=== PATIENT | male | born 1955 | race Caucasian/White ===

== ENCOUNTER 2023-06-22 14:49 | Outpatient (OUT) | payer MEDICARE, SELFPAY | END 2023-06-22 14:50 | disposition home or self-care (01) | LOC: PST 14:50 | PROVIDERS: PCP Family Medicine; Visit Provider Surgery | DX: Z01.818 Encounter for other preprocedural examination (principal) ==

== ENCOUNTER 2023-06-28 06:18 | Day surgery (SDC) | payer MEDICARE, SELFPAY ==
[2023-06-28 06:25] VITALS: BP 142/70; PULSE 82; TEMP 36.1; O2SAT 98; BMI 30.3
[2023-06-28 06:38] LABS: Glucometer 119 mg/dL (74-106)
[2023-06-28] MEDS: LACTATED RINGER'S SOLUTION 1,000 ML 50 ML IV (07:07)
[2023-06-28 07:52] VITALS: BP 104/49; PULSE 67; TEMP 35.9; O2SAT 95
--- NOTE | 2023-06-28 07:57 | PM.GSPRC ---
Date of procedure: 06/28/23 Indications for Procedure: screening colonoscopy Pre-op diagnosis: screening colonoscopy Post-op diagnosis: other (sigmoid diverticulitis, 40cm/sigmoid subcentimeter polyp removed with hot snare ) Procedure: Previous colonoscopy: 2016 procedure: screening colonoscopy PROCEDURE: The patient was given IV conscious sedation.? The patient's SPO2 remained above 90% throughout the procedure. The colonoscope was inserted per rectum and advanced under direct vision to the cecum without difficulty.? The prep was good.? Findings: Terminal ileum os: normal Cecum/Ascending colon: normal Transverse colon: normal Descending/Sigmoid colon: mild diverticulitis, sub centimeter polyp at 40cm removed via hot snare polypectomy technique Rectum/Anus: examined in normal and retroflexed positions and was normal Withdrawal Time was (minutes): 13 The colon was decompressed and the scope was removed.? The patient tolerated the procedure well. Recommendations/Plan: 1.? Lifestyle and dietary modifications as discussed 2.? F/U Biopsies 3.? F/U in 1 week to discuss repeat c-scope timing 4.? Discussed with the family Findings: sigmoid diverticulitis, 40cm/sigmoid subcentimeter polyp removed with hot snare Anesthesia: MAC Surgeon: Isma Marrero Procedure Summary: screening colonoscopy, 40cm/sigmoid subcentimeter polypectomy via hot snare Estimated blood loss (mL): 1.3 Specimens: sigmoid polyp Complications: No Pathology: other Condition: stable Disposition: PACU
[2023-06-28 08:07] VITALS: BP 109/50; PULSE 72; O2SAT 95
[2023-06-28 08:20] VITALS: BP 129/62; PULSE 70; O2SAT 98
== END 2023-06-28 08:26 | disposition home or self-care (01) ==
PROVIDERS: PCP Family Medicine; Visit Provider Surgery
PROC: (CPT 45385; principal; 2023-06-28 07:30)
DX: Z12.11 Encounter for screening for malignant neoplasm of colon (principal); K57.32 Diverticulitis of large intestine without perforation or abscess without bleeding; D12.5 Benign neoplasm of sigmoid colon; Z79.84 Long term (current) use of oral hypoglycemic drugs; E11.9 Type 2 diabetes mellitus without complications; F41.9 Anxiety disorder, unspecified; M19.90 Unspecified osteoarthritis, unspecified site; I10 Essential (primary) hypertension; E78.00 Pure hypercholesterolemia, unspecified; E66.9 Obesity, unspecified; Z68.32 Body mass index [BMI] 32.0-32.9, adult
CPT/HCPCS: 45385; 36415; 82948; 88305; J2704